=== PATIENT | male | born 1950 | race Hispanic/Latino ===

== ENCOUNTER 2024-11-05 19:20 | Emergency (ER) | payer MEDICARE ==
[~2024-11-05] VITALS: Ht 170.2 cm; Wt 79.4 kg
[~2024-11-05 19:20] MED LIST: ASPI-1005 PO; ATOR20TA65 PO; CLOP75TA32 PO; DAPA10TA PO; INSU3INS3 SQ; ISOS30TA92 PO; LOSA100T59 PO; METO50TA18 PO; NITR0.4T50 SL; OMEP20CA12 PO; SEMA7TAB2 PO; TAMS-55 PO; TRAM50TA4 PO
--- NOTE | 2024-11-05 19:42 | EKG ---
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
--- NOTE | 2024-11-05 20:11 | ERN ---
General Chief Complaint: Chest Pain Stated Complaint: CHEST PRESSURE, POST STENTS Time Seen by MD: 19:21 History of Present Illness Initial Comments Patient is a 74-year-old male with a history of numerous cardiac stent placements, the most recent ones approximately two three weeks ago by Dr. Cornelio Lora here. He is experiencing chest pressure substernal off and on throughout today and is coming in to see if his stents are functioning well. He has no other symptoms: No shortness of breath no chest pain no difficulty breathing no pain anywhere else in his body no lower extremity swelling no GI symptoms no urinary symptoms. Timing/Duration: 4-6 hours Allergies: Coded Allergies: levofloxacin (Unverified Allergy, Severe, HIVES, 06/02/16) Home Meds Active Scripts Losartan Potassium (Losartan Potassium) 100 Mg Tablet, 1 TAB PO DAILY for 30 Days, #30 TAB 0 Refills Prov:PAULKASSIDY A PA 10/21/24 Metoprolol Tartrate (Metoprolol Tartrate) 50 Mg Tablet, 1 TAB PO BID for 30 Days, #60 TAB 0 Refills Prov:PAULKASSIDY OLSON PA 10/21/24 Reported Medications Aspirin (ASPIRIN 81MG CHEW TAB) 81 Mg Tab.chew, 81 MG PO DAILY, TAB.CHEW 10/21/24 Nitroglycerin (Nitroglycerin) 0.4 Mg Tab.subl, 0.4 MG SL TIDP 10/21/24 Semaglutide (Rybelsus) 7 Mg Tablet, 1 TAB PO DAILY 10/21/24 Omeprazole (Omeprazole) 20 Mg Capsule.dr, 1 CAP PO DAILY 10/21/24 Dapagliflozin Propanediol (Farxiga) 10 Mg Tablet, 1 TAB PO DAILY 10/21/24 Atorvastatin Calcium (Atorvastatin Calcium) 20 Mg Tablet, 1 TAB PO DAILY 10/21/24 Insulin Glargine,Hum.rec.anlog (Lantus Solostar) 100 Unit/Ml (3 Ml) Insuln.pen, 80 UNITS SQ HS 10/21/24 Isosorbide Mononitrate (Isosorbide Mononitrate ER) 30 Mg Tab.er.24h, 1 TAB PO DAILY 10/21/24 Tamsulosin HCl (Flomax) 0.4 Mg Cap.er.24h, 0.4 MG PO HS 10/21/24 Tramadol Hcl (Tramadol HCl) 50 Mg Tablet, 1 TAB PO BID 10/21/24 Clopidogrel Bisulfate (Clopidogrel) 75 Mg Tablet, 1 TAB PO DAILY 10/21/24 Past Medical History Past Medical History: CAD, High Cholesterol, Hypertension Medical History Other: Numerous Cardiac STENTS Past Surgical History: CABG, Other Surgical History Other: HERNIA REPAIR Constitutional: (-) chills, (-) diaphoresis, (-) fever, (-) malaise, (-) weakness, (-) other documentation EENTM: (-) eye pain, (-) blurred vision, (-) tearing, (-) double vision, (-) ear pain, (-) ear discharge, (-) nose pain, (-) nose congestion, (-) throat pain , (-) Throat swelling, (-) mouth pain, (-) tooth pain, (-) mouth swelling, (-) other documentation Respiratory: (-) cough, (-) orthopnea, (-) short of breath, (-) stridor, (-) wheezing, (-) other documentation Cardiovascular: (-) chest pain, (-) edema, (-) palpitations, (-) syncope, (-) dyspnea on exertion, (-) other documentation Gastrointestinal/Abdominal: (-) nausea, (-) vomiting, (-) diarrhea, (-) abdominal pain, (-) abdominal distention, (-) constipation, (-) rectal bleeding, (-) dark stool/melena, (-) other documentation Musculoskeletal: (-) Neck pain, (-) back pain, (-) Flank Pain, (-) joint pain, (-) joint swelling, (-) muscle pain, (-) muscle stiffness, (-) gout, (-) other documentation Skin: (-) laceration, (-) contusion, (-) abrasion, (-) abscess, (-) rash, (-) change in color, (-) change in hair, (-) change in nails, (-) diaphoresis, (-) dryness, (-) other documentation Psych: (-) depression, (-) suicidal ideation, (-) anxiety, (-) emotional problems, (-) auditory hallucinations, (-) visual hallucinations Physical Exam General Appearance: (+) no apparent distress Orientation: (+) alert, (+) oriented x 3 Head/Face Trauma: No Eye: bilateral eye normal inspection, bilateral eye PERRL, bilateral eye EOMI Ear, Nose, Throat: (+) hearing grossly normal, (+) normal ENT inspection, (+) moist mucous membraine Neck: (+) normal inspection, (+) supple, (+) full range of motion Respiratory: (+) chest non-tender, (+) lungs clear, (+) well ventilated Heart: (+) regular, (+) no gallop Vascular: (+) no edema, (+) normal peripheral pulse Gastrointestinal: (+) soft, (+) non-tender, (+) bowel sound present Results Laboratory and Microbiology Lab and Micro Result Laboratory Tests Test 11/05/24 20:06 White Blood Count 7.3 K/uL (4.8-10.8) Red Blood Count 4.03 MIL/uL (4.50-6.20) L Hemoglobin 13.9 g/dL (14.0-18.0) L Hematocrit 39.4 % (42-54) L Mean Corpuscular Volume 97.8 fL (79-99) Mean Corpuscular Hemoglobin 34.5 pg (27.0-33.0) H Mean Corpuscular Hemoglobin Concent 35.3 g/dL (32.0-36.0) Red Cell Distribution Width 12.0 % (11.0-15.5) Platelet Count 146 K/uL (130-400) Mean Platelet Volume 11.4 fL (7.5-10.5) H Immature Granulocyte % (Auto) 0.3 % (0-1) Neutrophils (%) (Auto) 63.0 % (40.0-77.0) Lymphocytes (%) (Auto) 25.5 % (21.0-51.0) Monocytes (%) (Auto) 9.6 % (3.0-13.0) Eosinophils (%) (Auto) 1.1 % (0.0-8.0) Basophils (%) (Auto) 0.5 % (0.0-5.0) Neutrophils # (Auto) 4.6 K/uL (1.8-7.7) Lymphocytes # (Auto) 1.9 K/uL (1.0-4.8) Monocytes # (Auto) 0.7 K/uL (0.1-1.0) Eosinophils # (Auto) 0.08 K/uL (0.00-0.70) Basophils # (Auto) 0.04 K/uL (0.00-0.20) Absolute Immature Granulocyte (auto 0.02 K/uL (0-1) Nucleated Red Blood Cells 0.0 % (0.0-0.19) Sodium Level 137 mmol/L (136-145) Potassium Level 4.3 mmol/L (3.5-5.1) Chloride Level 103 mmol/L (101-111) Carbon Dioxide Level 25 mmol/L (21-32) Blood Urea Nitrogen 29 mg/dL (7-18) H Creatinine 1.7 mg/dL (0.5-1.3) H Glomerular Filtration Rate Calc 42 mL/min (>90) Random Glucose 249 mg/dL (70-105) H Total Calcium 8.5 mg/dL (8.5-10.1) Troponin I High Sensitivity 7 ng/L (4-75) B-Type Natriuretic Peptide 29 pg/mL (0-100) MDM Patient with substernal chest pressure three weeks after having stents placed. I will check cardiac enzymes EKGs BNP chest x-ray CBC chemistry panel. Patient's chest x-ray has a unchanged compared to one from 10/20/2024. His chemistry panel shows only a slight increase in his serum creatinine. His cardiac enzymes and BNP are both normal. I talked to the patient in his about repeating the enzymes and giving him some fluid and they said that they would rather go home and see their doctor in the morning as they already have a scheduled appointment with him Dr. Cornelio Lora. ED Course Orders Procedure Category Date Status Time 12 Lead Ekg Tracing- EKG 11/05/24 Complete Technical 19:24 Basic Metabolic Panel LAB 11/05/24 Complete 19:24 Cbc With Differential LAB 11/05/24 Complete 19:24 Troponin I High LAB 11/05/24 Complete Sensitivity 19:24 Chest 1vw RAD 11/05/24 Resulted 19:24 B-Type Natriuretic LAB 11/05/24 Complete Peptide 19:24 Lactated Ringers PHA 11/05/24 Complete 1000ml (Lactated 21:51 B-Type Natriuretic LAB 11/05/24 Logged Peptide 21:51 Troponin I High LAB 11/05/24 Logged Sensitivity 21:51 Current Medications Medications (Trade) Dose Ordered Sig/[place] Route PRN Reason Start Time Stop Time Status Last Admin Dose Admin Lactated Ringer's (Lactated Ringers 1000ml) 1,000 ml BOLUS STAT IV 11/05/24 21:51 11/05/24 21:54 DC Vital Signs Date Time Temp Pulse Resp B/P (MAP) Pulse Ox O2 Delivery O2 Flow Rate FiO2 11/05/24 19:57 98.6 66 19 189/82 98 Room Air* 0 21 11/05/24 19:36 98.6 66 18 194/84 99 Room Air 0 DX & DISP Disposition: Discharge Departure Impression: Primary Impression: Chest pressure Condition: Stable Additional Instructions: You were cardiac enzymes are normal there was no evidence of any cardiac ischemia or cardiac dysfunction. Your chest x-ray also looks fairly similar to the one from about a month ago. 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 Please return to the emergency room if you experience worsening chest pressure chest pain difficulty breathing. Referrals: GUNNER VELASQUEZ MD, PA (PCP) LEVAR ZULETA MD November 05, 2024 20:10
[2024-11-05 20:14] LABS: BASOPHILS # (AUTO) 0.04 K/uL (0.00-0.20); BASOPHILS % (AUTO) 0.5 % (0.0-5.0); EOSINOPHILS # (AUTO) 0.08 K/uL (0.00-0.70); EOSINOPHILS % (AUTO) 1.1 % (0.0-8.0); HEMATOCRIT 39.4 % (42-54); IMMATURE GRANULOCYTE ABSOLUTE 0.02 K/uL (0-1); LYMPHOCYTES # (AUTO) 1.9 K/uL (1.0-4.8); LYMPHOCYTES % (AUTO) 25.5 % (21.0-51.0); MEAN CORPUSCULAR HEMOGLOBIN 34.5 pg (27.0-33.0); MEAN CORPUSCULAR HGB CONC 35.3 g/dL (32.0-36.0); MEAN CORPUSCULAR VOLUME 97.8 fL (79-99); MONOCYTES # (AUTO) 0.7 K/uL (0.1-1.0); MONOCYTES % (AUTO) 9.6 % (3.0-13.0); NEUTROPHILS # (AUTO) 4.6 K/uL (1.8-7.7); PLATELET COUNT (AUTO) 146 K/uL (130-400); RED BLOOD CELL COUNT(AUTO) 4.03 MIL/uL (4.50-6.20); WHITE BLOOD COUNT (AUTO) 7.3 K/uL (4.8-10.8)
[2024-11-05 20:22] LABS: CREATININE 1.7 mg/dL (0.5-1.3); POTASSIUM 4.3 mmol/L (3.5-5.1)
[2024-11-05 20:49] LABS: B-TYPE NATRIURETIC PEPTIDE 29 pg/mL (0-100)
--- NOTE | 2024-11-05 20:50 | HMCIMG ---
CHEST 1VW CLINICAL HISTORY: CHEST PAIN POST STENT COMPARISON: 10/20/2024 TECHNIQUE: Single view of the chest was obtained. FINDINGS: Lungs are clear. Cardiac size unremarkable. The pacemaker is stable. Again demonstrated is change from prior median sternotomy. IMPRESSION: No acute cardiopulmonary process identified.
[2024-11-05 21:45] VITALS: BP 156/68; PULSE 62; RESP 18; TEMP 98.5; O2SAT 97
--- NOTE | 2024-11-05 22:10 | NUR ---
PATIENT EDUCATION DEALT TO PATIENT PRIOR TO D/C; PATIENT REINFORCED TO CALL 911 OR RETURN TO NEAREST ED FOR RETURN OR WORSENING OF SIGNS AND SYMPTOMS. ED MD AT BEDSIDE; ALL INSTRUCTIONS WERE REINFORCED BY ED MD AND ED RN. PATIENT AXO X4. PATIENT AND BOTH STATED UNDERSTANDING.
[2024-11-05] MEDS: LACTATED RINGERS 1000ML IV STA (22:29)
== END 2024-11-05 22:10 | disposition home or self-care (01) ==
LOC: EDH 19:20
DX: R07.89 Other chest pain (principal); I25.10 Atherosclerotic heart disease of native coronary artery without angina pectoris; E78.00 Pure hypercholesterolemia, unspecified; I10 Essential (primary) hypertension; Z79.02 Long term (current) use of antithrombotics/antiplatelets; Z79.82 Long term (current) use of aspirin; Z79.84 Long term (current) use of oral hypoglycemic drugs; Z79.899 Other long term (current) drug therapy; Z88.1 Allergy status to other antibiotic agents; Z95.1 Presence of aortocoronary bypass graft; Z95.5 Presence of coronary angioplasty implant and graft; Z98.890 Other specified postprocedural states
CPT/HCPCS: 36415; 71045; 80048; 83880; 84484; 85025; 93005; 99285

== ENCOUNTER 2024-11-07 10:57 | Inpatient (IN) | payer MEDICARE ==
[~2024-11-07] VITALS: Ht 170.2 cm; Wt 77.1 kg
[2024-11-07] VITALS (15 sets, daily range): BP systolic 100–194; BP diastolic 50–85; PULSE 59–81; RESP 16–17; O2SAT 98
[2024-11-07 11:17] LABS: BASOPHILS # (AUTO) 0.04 K/uL (0.00-0.20); BASOPHILS % (AUTO) 0.6 % (0.0-5.0); EOSINOPHILS # (AUTO) 0.05 K/uL (0.00-0.70); EOSINOPHILS % (AUTO) 0.8 % (0.0-8.0); HEMATOCRIT 41.5 % (42-54); IMMATURE GRANULOCYTE ABSOLUTE 0.02 K/uL (0-1); LYMPHOCYTES # (AUTO) 1.3 K/uL (1.0-4.8); LYMPHOCYTES % (AUTO) 21.2 % (21.0-51.0); MEAN CORPUSCULAR HEMOGLOBIN 34.8 pg (27.0-33.0); MEAN CORPUSCULAR HGB CONC 35.4 g/dL (32.0-36.0); MEAN CORPUSCULAR VOLUME 98.1 fL (79-99); MONOCYTES # (AUTO) 0.6 K/uL (0.1-1.0); MONOCYTES % (AUTO) 9.1 % (3.0-13.0); NEUTROPHILS # (AUTO) 4.2 K/uL (1.8-7.7); PLATELET COUNT (AUTO) 144 K/uL (130-400); RED BLOOD CELL COUNT(AUTO) 4.23 MIL/uL (4.50-6.20); RED CELL DISTRIBUTION WIDTH 12.1 % (11.0-15.5); WHITE BLOOD COUNT (AUTO) 6.2 K/uL (4.8-10.8)
--- NOTE | 2024-11-07 11:20 | ERN ---
General Chief Complaint: Chest Pain Stated Complaint: CHEST PAIN Time Seen by MD: 11:00 History of Present Illness Initial Comments 54-year-old male history of CAD, history of known right coronary artery lesion, patient of Dr. Cornelio Lora at the [facility], presents for chest pain. Patient was had CAD, he was expected to get a cardiac catheterization. He has been having on and off chest pressures recently. He was sent over from Dr. Cornelio Lora's office for a likely catheterization today. Patient currently has stable vital signs in his asymptomatic. Allergies: Coded Allergies: levofloxacin (Unverified Allergy, Severe, HIVES, 06/02/16) Home Meds Active Scripts Losartan Potassium (Losartan Potassium) 100 Mg Tablet, 1 TAB PO DAILY for 30 Days, #30 TAB 0 Refills Prov:KASSIDY PAUL 10/21/24 Metoprolol Tartrate (Metoprolol Tartrate) 50 Mg Tablet, 1 TAB PO BID for 30 Days, #60 TAB 0 Refills Prov:KASSIDY PAUL 10/21/24 Reported Medications Aspirin (ASPIRIN 81MG CHEW TAB) 81 Mg Tab.chew, 81 MG PO DAILY, TAB.CHEW 10/21/24 Nitroglycerin (Nitroglycerin) 0.4 Mg Tab.subl, 0.4 MG SL TIDP 10/21/24 Semaglutide (Rybelsus) 7 Mg Tablet, 1 TAB PO DAILY 10/21/24 Omeprazole (Omeprazole) 20 Mg Capsule.dr, 1 CAP PO DAILY 10/21/24 Dapagliflozin Propanediol (Farxiga) 10 Mg Tablet, 1 TAB PO DAILY 10/21/24 Atorvastatin Calcium (Atorvastatin Calcium) 20 Mg Tablet, 1 TAB PO DAILY 10/21/24 Insulin Glargine,Hum.rec.anlog (Lantus Solostar) 100 Unit/Ml (3 Ml) Insuln.pen, 80 UNITS SQ HS 10/21/24 Isosorbide Mononitrate (Isosorbide Mononitrate ER) 30 Mg Tab.er.24h, 1 TAB PO DAILY 10/21/24 Tamsulosin HCl (Flomax) 0.4 Mg Cap.er.24h, 0.4 MG PO HS 10/21/24 Tramadol Hcl (Tramadol HCl) 50 Mg Tablet, 1 TAB PO BID 10/21/24 Clopidogrel Bisulfate (Clopidogrel) 75 Mg Tablet, 1 TAB PO DAILY 10/21/24 Past Medical History Past Medical History: CAD, High Cholesterol, Hypertension Medical History Other: Numerous Cardiac STENTS Past Surgical History: CABG, Other Surgical History Other: HERNIA REPAIR ROS Dictation CONSTITUTIONAL: No chills, no fever, no weakness, no diaphoresis, no malaise. HEAD/FACE: No signs of trauma. EENT: No eye pain, no blurred vision, no tearing, no double vision, no ear pain, no ear discharge, no nose pain, no nasal congestion, no throat pain, no throat swelling, no mouth pain. RESPIRATORY: No cough, no orthopnea, no SOB, no stridor, no wheezing. CARDIOVASCULAR: Recent chest pains GASTROINTESTINAL/ABDOMINAL: No abdominal pain, no constipation, no diarrhea, no nausea, no vomiting. GENITOURINARY: No abnormal discharge, no dysuria, no frequent urination, no hematuria. No complaints of pain in the genitals. MUSCULOSKELETAL: No back pain, no gout, no joint pain, no joint swelling, no muscle pain, no muscle stiffness, no neck pain. INTEGUMENTARY: No change in color, no change in hair/nails, no dryness, no lesion, no lumps, no rash. NEUROLOGICAL/PSYCH: No anxiety, not depressed, no emotional problem, no headache, no numbness, no pre-existing deficit, no history of seizures, no tremors, no weakness. HEMATOLOGIC/LYMPHATIC: Not anemic, no history of blood clots, no apparent bleeding, no bruising, glands not swollen. All Systems Negative, Except as Noted. Physical Exam Physical Exam Dictation VITAL SIGNS: Reviewed. GENERAL APPEARANCE: Alert, oriented x3, no acute distress. HEAD AND FACE: Non-traumatic. EYES: PERRL, pink conjunctivas, eyelid no trauma, anterior chamber clear. EARS: Pinnas intact and no signs of trauma or erythema. Ear canals clear and no discharge. TMs no erythema. NOSE: No discharge, no bleeding. OROPHARYNX: Mouth normal, teeth no caries, tongue pink. Pharynx clear, no erythema. Tonsils no exudates, no abscesses noted. Mucous membrane moist. NECK: Supple, non-tender, no thyromegaly, no masses, no JVD, no bruits. BREAST: Deferred. CHEST: No tenderness, no crepitus, no paradoxical movement, no retractions. LUNGS: Clear, well-ventilated, symmetric, no rales, no wheezing, no rhonchi, no stridor, good breath sounds bilaterally. HEART: Regular rate, regular rhythm, no murmur, no gallops. VASCULAR: No peripheral edema. ABDOMEN: Soft, positive bowel sounds, nondistended, no guarding, nontender, no rebound, no masses no hepatomegaly, no splenomegaly, no Carbajal's sign, no hernias. RECTAL: Deferred. GENITAL: Deferred. NEUROLOGICAL: Normal speech, gross motor function intact, gross sensory function intact. MUSCULOSKELETAL: Neck nontender, full range of motion, back nontender, full range of motion. EXTREMITIES: Nontender, full range of motion. SKIN: Color pink, dry, no turgor, no rash, no lacerations, no abrasions, no contusions. LYMPHATICS: Deferred. Results Laboratory and Microbiology Lab and Micro Result Laboratory Tests Test 11/07/24 11:07 White Blood Count 6.2 K/uL (4.8-10.8) Red Blood Count 4.23 MIL/uL (4.50-6.20) L Hemoglobin 14.7 g/dL (14.0-18.0) Hematocrit 41.5 % (42-54) L Mean Corpuscular Volume 98.1 fL (79-99) Mean Corpuscular Hemoglobin 34.8 pg (27.0-33.0) H Mean Corpuscular Hemoglobin Concent 35.4 g/dL (32.0-36.0) Red Cell Distribution Width 12.1 % (11.0-15.5) Platelet Count 144 K/uL (130-400) Mean Platelet Volume 10.7 fL (7.5-10.5) H Immature Granulocyte % (Auto) 0.3 % (0-1) Neutrophils (%) (Auto) 68.0 % (40.0-77.0) Lymphocytes (%) (Auto) 21.2 % (21.0-51.0) Monocytes (%) (Auto) 9.1 % (3.0-13.0) Eosinophils (%) (Auto) 0.8 % (0.0-8.0) Basophils (%) (Auto) 0.6 % (0.0-5.0) Neutrophils # (Auto) 4.2 K/uL (1.8-7.7) Lymphocytes # (Auto) 1.3 K/uL (1.0-4.8) Monocytes # (Auto) 0.6 K/uL (0.1-1.0) Eosinophils # (Auto) 0.05 K/uL (0.00-0.70) Basophils # (Auto) 0.04 K/uL (0.00-0.20) Absolute Immature Granulocyte (auto 0.02 K/uL (0-1) Nucleated Red Blood Cells 0.0 % (0.0-0.19) Prothrombin Time 10.9 SEC (9.6-11.6) Prothromb Time International Ratio 1.03 (0.85-1.15) Activated Partial Thromboplast Time 26.1 SEC (26.3-35.5) L Sodium Level 142 mmol/L (136-145) Potassium Level 4.4 mmol/L (3.5-5.1) Chloride Level 106 mmol/L (101-111) Carbon Dioxide Level 27 mmol/L (21-32) Blood Urea Nitrogen 27 mg/dL (7-18) H Creatinine 1.2 mg/dL (0.5-1.3) Glomerular Filtration Rate Calc 64 mL/min (>90) Random Glucose 172 mg/dL (70-105) H Total Calcium 8.7 mg/dL (8.5-10.1) Magnesium Level 2.20 mg/dL (1.80-2.40) Troponin I High Sensitivity 10 ng/L (4-75) B-Type Natriuretic Peptide 86 pg/mL (0-100) MDM CC: On and off reason chest pains, Known complicated RCA lesion patient of Cornelio Lora Historian: Patient Comorbidities: CAD, dyslipidemia, hypertension, history of CABG Limitations by social determinants some health: None Differential diagnosis: ACS, angina, other Vital signs: Stable, remained stable here in the ER. Mild hypertension. EKG: Sinus rhythm rate of 65 normal axis good R-wave progression intervals are stable. No STEMI. Independently interpreted by me. Labs (independently ordered and interpreted by me ): No leukocytosis no anemia. Coags are stable. Metabolic panel stable. Troponin and BNP normal. CXR ( independently interpreted by me): No cardiomegaly pleural effusions or focal infiltrates. Pacemaker appears in place, sternotomy scar present Patient has a high-risk chest pain, heart score of five, we will admit for evaluation. ED Course Orders Procedure Category Date Status Time Cbc With Differential LAB 11/07/24 Complete 11:00 Prothrombin Time With LAB 11/07/24 Complete INR 11:00 B-Type Natriuretic LAB 11/07/24 Complete Peptide 11:00 Chest 1vw RAD 11/07/24 Taken 11:00 12 Lead Ekg Tracing- EKG 11/07/24 Logged Technical 11:00 Magnesium LAB 11/07/24 Complete 11:00 Troponin I High LAB 11/07/24 Complete Sensitivity 11:00 Partial LAB 11/07/24 Complete Thromboplastin Time 11:00 Basic Metabolic Panel LAB 11/07/24 Complete 11:00 Nothing By Mouth DIET 11/07/24 Transmitted Lunch Aspirin 81mg Ec Tab PHA 11/08/24 In Process (Aspirin 81mg Ec Tab 09:00 Atorvastatin 40mg PHA 11/07/24 In Process (Lipitor 40mg) 21:00 Apply Scds CPOE 11/07/24 Transmitted 11:39 Cbc With Differential LAB 11/08/24 Verified 04:00 Comprehensive LAB 11/08/24 Verified Metabolic Panel 04:00 Magnesium LAB 11/08/24 Verified 04:00 Magnesium 2gm Premix PHA 11/07/24 In Process 50ml (Magnesium 2gm 12:00 Initiate Npo DON 11/07/24 In Process Hypokalemia Jerod 11:39 Potassium Chloride PHA 11/07/24 In Process 20meq/100ml ([place] 12:00 Notify Physician If CPOE 11/07/24 Transmitted There Is 11:39 Notify Md On The Next CPOE 11/07/24 Transmitted 11:39 Notify Md On The CPOE 11/07/24 Transmitted Next(Cont.) 11:39 Acetaminophen 325 Tab PHA 11/07/24 In Process (Tylenol 325mg Tab 12:00 Ondansetron 4mg Inj PHA 11/07/24 In Process (Zofran 4mg Inj) 12:00 Famotidine 20mg Vial PHA 11/07/24 In Process (Pepcid 20mg Vial) 21:00 Nitroglycerin 0.4mg PHA 11/07/24 In Process Sl Tab (Nitrostat) 12:00 Metoprolol Tartrate PHA 11/07/24 In Process 50 Mg Tab (Lopressor 21:00 Isosorbide Titus 30mg PHA 11/08/24 In Process Sr Tab (Imdur 30mg 09:00 Losartan 100 Mg PHA 11/08/24 In Process Tablet (Cozaar 100mg 09:00 Initiate DON 11/07/24 In Process Hyperglycemia Protoco 11:43 Insulin Regular, PHA 11/07/24 In Process Human 3ml (Humulin R 16:30 Current Medications Medications (Trade) Dose Ordered Sig/[place] Route PRN Reason Start Time Stop Time Status Last Admin Dose Admin Acetaminophen (TYLenol 325MG TAB) 650 mg Q4H PRN PO TEMPERATURE GREATER THAN 101.5 11/07/24 12:00 12/07/24 11:59 Aspirin (Aspirin 81mg Ec Tab) 81 mg DAILY PO 11/08/24 09:00 12/08/24 08:59 Atorvastatin Calcium (LIPItor 40MG) 40 mg HS PO 11/07/24 21:00 12/07/24 20:59 Famotidine (Pepcid 20mg Vial) 20 mg BID IV 11/07/24 21:00 12/07/24 20:59 Insulin Human Regular (humuLIN R 100 UNIT/ML 3ML) INSULIN SLIDING SCAL... ACHS SQ 11/07/24 16:30 12/07/24 16:29 Isosorbide Mononitrate (Imdur 30mg Sr) 30 mg DAILY PO 11/08/24 09:00 12/08/24 08:59 Losartan Potassium (CozAAR 100MG TAB) 100 mg DAILY PO 11/08/24 09:00 12/08/24 08:59 Magnesium Sulfate 50 ml @ 0 mls/hr PROTOCOL PRN IV low mag level 11/07/24 12:00 12/07/24 11:59 Metoprolol Tartrate (loprESSOR) 50 mg BID PO 11/07/24 21:00 12/07/24 20:59 Nitroglycerin (Nitrostat) 0.4 mg AD PRN SL CHEST PAIN 11/07/24 12:00 12/07/24 11:59 Ondansetron HCl (zoFRAN 4MG INJ) 4 mg Q6H PRN IVP NAUSEA/VOMITING 11/07/24 12:00 12/07/24 11:59 Potassium Chloride 100 ml @ 50 mls/hr AD PRN IV POTASSIUM PROTOCOL 11/07/24 12:00 12/07/24 11:59 Vital Signs Date Time Temp Pulse Resp B/P (MAP) Pulse Ox O2 Delivery O2 Flow Rate FiO2 11/07/24 11:08 61 16 148/69 99 Room Air* 0 21 11/07/24 10:58 99.0 65 20 151/83 98 Room Air 0 DX & DISP Disposition: Inpatient Departure Impression: Primary Impression: Unstable angina Condition: Stable Referrals: SELF,REFERRAL (PCP) ELIZABETH ANDREWS DO November 07, 2024 11:20
[2024-11-07 11:24] LABS: CREATININE 1.2 mg/dL (0.5-1.3); MAGNESIUM 2.2 mg/dL (1.80-2.40); POTASSIUM 4.4 mmol/L (3.5-5.1)
[2024-11-07 11:35] LABS: B-TYPE NATRIURETIC PEPTIDE 86 pg/mL (0-100)
--- NOTE | 2024-11-07 11:43 | NUR ---
MED REC: DOES NOT HAVE MEDICATIONS ON HAND NOR LIST. DOES NOT HAVE METHOD TO RETREIVE THEM. CERTIFIED DRIVER EXAMINER, JOHN TO CONTACT [facility] FOR MEDICATIONS LIST.
--- NOTE | 2024-11-07 11:47 | HP ---
[facility] HISTORY AND PHYSICAL Date of Service: November 07, 2024 Time of Service: 11:33 HISTORY OF PRESENT ILLNESS: [ ] This is a 74-year-old male with a significant history of CAD s/p stents x3 on last admission underwent Left Heart cath needing intervention of the RCA and PDA ; remote CABG we will presents in ED for evaluation of unstable angina. He was sent from Dr. Lora's office for evaluation for possible left heart catheterization this afternoon. onset; Onset: 2 days, location: mid sternal, does not radiate, aggravated factors: unable to take a deep breath, alleviating factors: none. associated symptoms; Difficultly taking a deep breath, interval of palpitation, denies GI symptoms, dizziness, near fainting, swelling to lower extremities. Patient reports took his morning medication Woltev14 mg p.o. daily, rnxuzmzwfc90 mg p.o. twice a day, isosorbide 30 mg p.o. daily, baby as pirin81 mg p.o. daily. Patient is seen in ED 20 lying in bed in no distress. No dull chest pain. Patient is hemodynamically stable. Significant other at bedside discussed the plan of care. REVIEW OF SYSTEMS a 14 point ROS obtained all relevant were documented otherwise ROS negative PAST MEDICAL HISTORY: [ ] CAD , hyperlipidemia, hypertension PAST SURGICAL HISTORY: [ ]status post x3 stent drug-eluting stent in the mid RCA with residual 80% mid circumflex stenosis PAST SOCIAL HISTORY: never smoker, denies Alcohol Consumption FAMILY HISTORY: [ ] Noncontributory Coded Allergies: levofloxacin (Unverified Allergy, Severe, HIVES, 06/02/16) PHYSICAL EXAM GENERAL APPEARANCE: The patient is awake, alert, and oriented, in no acute cardiopulmonary distress. NEUROLOGICAL: Cranial nerves II-XII grossly intact. Motor is 5/5 in bilateral upper and lower extremities proximal to distal. No sensory deficits. HEENT: Face is symmetric. Pupils are equal and reactive. Extraocular movements are intact. NECK: Supple. No JVD. No thyromegaly. No submental, submandibular, pre- /postauricular, occipital or supraclavicular lymphadenopathy. CHEST: Normal chest expansion. No Telemetry. LUNGS: Absence of any rales, rhonchi or any wheezing. CARDIOVASCULAR: Regular. S1 and S2 normal. No appreciable rubs, murmurs or gallops. ABDOMEN: Soft, nontender, and nondistended. There is no rebound, voluntary guarding, or rigidity. : Deferred. No Boyle. EXTREMITIES: Non-edematous and not cyanotic. No clubbing. Good capillary refill. SKIN: No skin breakdown. Vital Sign (Last 24 Hours) 11/07/24 11/07/24 10:58 11:08 Temp 99.0 Pulse 61 Resp 16 B/P (MAP) 148/69 Pulse Ox 99 O2 Delivery Room Air* O2 Flow Rate 0 FiO2 21 LABS: Laboratory: Test 11/07/24 11:07 Range/Units White Blood Count 6.2 4.8-10.8 K/uL Red Blood Count 4.23 L 4.50-6.20 MIL/uL Hemoglobin 14.7 14.0-18.0 g/dL Hematocrit 41.5 L 42-54 % Mean Corpuscular Volume 98.1 79-99 fL Mean Corpuscular Hemoglobin 34.8 H 27.0-33.0 pg Mean Corpuscular Hemoglobin Concent 35.4 32.0-36.0 g/dL Red Cell Distribution Width 12.1 11.0-15.5 % Platelet Count 144 130-400 K/uL Mean Platelet Volume 10.7 H 7.5-10.5 fL Immature Granulocyte % (Auto) 0.3 0-1 % Neutrophils (%) (Auto) 68.0 40.0-77.0 % Lymphocytes (%) (Auto) 21.2 21.0-51.0 % Monocytes (%) (Auto) 9.1 3.0-13.0 % Eosinophils (%) (Auto) 0.8 0.0-8.0 % Basophils (%) (Auto) 0.6 0.0-5.0 % Neutrophils # (Auto) 4.2 1.8-7.7 K/uL Lymphocytes # (Auto) 1.3 1.0-4.8 K/uL Monocytes # (Auto) 0.6 0.1-1.0 K/uL Eosinophils # (Auto) 0.05 0.00-0.70 K/uL Basophils # (Auto) 0.04 0.00-0.20 K/uL Absolute Immature Granulocyte (auto 0.02 0-1 K/uL Nucleated Red Blood Cells 0.0 0.0-0.19 % Sodium Level 142 136-145 mmol/L Potassium Level 4.4 3.5-5.1 mmol/L Chloride Level 106 101-111 mmol/L Carbon Dioxide Level 27 21-32 mmol/L Blood Urea Nitrogen 27 H 7-18 mg/dL Creatinine 1.2 0.5-1.3 mg/dL Glomerular Filtration Rate Calc 64 >90 mL/min Random Glucose 172 H 70-105 mg/dL Total Calcium 8.7 8.5-10.1 mg/dL Magnesium Level 2.20 1.80-2.40 mg/dL Troponin I High Sensitivity 10 4-75 ng/L DIAGNOSTICS / RADIOLOGY: [ ] ASSESSMENT: Unstable angina rule out ACS POA CAD s/p CABG, s/p stenting x3 hockwave and PCI to SVG to OM 2 10/20. However, patient will need intervention of the RCA and PDA in the future POA HTN HLD PLAN: Admit:PCCU condition:guarded Status:Full code IVF: NS at 75 ml/hr Consultants: supervisor prop making Procedure: Left Heart Cath this afternoon ACS protocol; Asa, Statin Therapy. Labs cbc, cmp, mag+ lipid panel, TSH. A1c Replace electrolytes as needed as per protocol to keep potassium above 4.0 magnesium 2.0. Home medications isosorbide 30 mg p.o. daily, y, metoprolol 25 mg twice a day, asa 81 mg po daily, PLavix 75 mg po daily Nitroglycerin 0.4 sublingually as directed PRN: MEDICATIONS Tylenol 650 mg po every 4 hrs for fever Zofran 4 mg IV every 6 hrs for n/v Hydralazine 5 mg IV every 4 hrs systolic pressure > 160 bowel regiment: lactulose 20 gm PO BID PRN constipation Pain management: Tylenol as directed Supportive measures: DVT ppx, GI ppx all questions answered time spent: > 35 min Supervising MD: c/d This document was generated in part using voice recognition software, occasional wrong word or sound alike substitutions may have occurred due to the inherent limitations of voice recognition software. Read the chart carefully and recognize using context, where the substitutions have occurred. Although every effort was made to edit the content, ac/dc rewinder and typing errors may occur ADVANCED CARE PLANNING 1. Which of the following were discussed? Hospice Care - Yes / No Therapeutic options - Yes / No Advance Directives - Yes / No Other discussions - 2. Discussed with who? 3. Voluntary nature of this service was explained to the patient? Yes / No 4. Amount of time spent - 5. Reviewed by Physician? (if this service was performed by NPP) Yes / No ATTESTATION BY PHYSICIAN I have seen and examined the patient. I reviewed the documentation, medical decision making, and treatment plan as noted by the mid-level provider above. I agree with the findings and plan of care. JOSE BOWIE MD, ELIZABETH NP November 07, 2024 11:47
[2024-11-07 11:53] LABS: INR 1.03 (0.85-1.15); PROTHROMBIN TIME 10.9 SEC (9.6-11.6)
[2024-11-07 11:54] LABS: PARTIAL THROMBOPLASTIN TIME 26.1 SEC (26.3-35.5)
[2024-11-07] MEDS ORDERED: PoTASSium chloRIDE 20MEQ/100ML 100 ML IV PRN (12:00)
[2024-11-07] MEDS ORDERED: ondanSETRON 4MG INJ IVP PRN (12:00)
[2024-11-07] MEDS ORDERED: NITROGLYCERIN 0.4 MG SL TAB SL PRN ×2 (12:00→17:00)
[2024-11-07] MEDS ORDERED: acetaMINOPHEN 325 MG TAB PO PRN (12:00)
[2024-11-07] MEDS ORDERED: MAGNESIUM 2GM PREMIX 50ML 50 ML IV PRN (12:00)
--- NOTE | 2024-11-07 12:02 | EKG ---
[facility] Test Date: 2024-11-07 Test Time: 10:43:12 Pat Name: FRANNY FERRIS Department: ED Room: 201 Gender: M Senior Bi Developer: [id number] : 1950 Requested By: ELIZABETH ANDREWS Order Number: [id number] Reading MD: Tomasa Boland Measurements Intervals [place] Rate: 65 P: 50 OH: 146 QRS: 35 QRSD: 75 T: 91 QT: 379 QTc: 395 Interpretive Statements Sinus rhythm Nonspecific T abnormalities, lateral leads Compared to ECG 11/05/2024 19:39:05 T-wave abnormality now present Electronically Signed On 11-08-2024 09:19:02 CDT by Tomasa Boland Please click the below link to view image of tracing.
--- NOTE | 2024-11-07 12:20 | HMCIMG ---
Exam Type: CHEST 1VW Clinical Information: chest pain Comparison: None Findings: There is cardiomegaly and there is status post median sternotomy. The lungs are clear of infiltrates. Left-sided cardiac pacemaker is noted with leads in place. Impression: Clear lungs.
--- NOTE | 2024-11-07 13:39 | CONS ---
Cardiac Consult Note CONSULT NOTE DATE OF SERVICE: November 07, 2024 at 10:57 REFERRING PROVIDER: BRIEN GONZALES MD REASON FOR CONSULT: Unstable angina HPI: 74-year-old male who saw me in the office on October 31, 2024 for follow up after having had successful angioplasty and stent placement to a saphenous vein graft to obtuse marginal branch 2. With several stents placed in that setting as well as lithotripsy done. Patient had residual stenosis and a PDA of the proximal 95% as well as InStent restenosis of a mid RCA stent anywhere from 50-70%. Patient started having symptoms which were unstable nature and he was told to present to the nearest emergency room. Patient is here today for evaluation. Initial enzymes have been reviewed. Plan at this time is to proceed with intervention to right coronary artery and PDA. ROS: No fever, headache, chest pain, abdominal pain, nausea, vomiting, or diarrhea. PMHX: History of coronary artery disease with CABG x3 in 2007 Medicated RCA stent done on February 16, 2012 with a 3.5 mm x 12 mm medicated stent placed May 2019 with a stent placed to the saphenous vein graft to obtuse marginal branch with with the use of a 3.5 mm x 15 resolute ayla stent June 2019 proximal RCA3 mm x 23 mm Xience stent placed April 2019 Medtronic dual-chamber biventricular pacemaker MRI compatible Diabetes mellitus Hypertension October 20, 2024 lithotripsy angioplasty to a saphenous vein graft with the use of a4 mm x 12 mm lithotripsy balloon for a treatments as well as 3.5 mm x 22 mm ayla [place] stent post dilated to 4.69 mm vessel and use of a 4.5 mm x 33 mm Xience stent deployed to 4.67 mm PSHX: CABG x3 2007 Hernia repair Pacemaker placement 2018 FH: Noncontributory SOCIAL: Noncontributory PHYSICAL EXAMINATION: GENERAL: No acute distress. HEENT: Normocephalic, atraumatic. CARDIAC: Positive S1 and S2. No murmurs. LUNGS: Clear to auscultation bilaterally. ABDOMEN: Bowel sounds present, soft, nontender. EXTREMITIES: No edema bilaterally. NEUROLOGIC: Cranial nerves 2-12 grossly intact. PSYCHIATRIC: Calm. ASSESSMENT: Unstable angina History of severe coronary artery disease status post CABG and multivessel intervention done postoperatively Hypertension Diabetes Sick sinus syndrome with prior Medtronic dual-chamber biventricular pacemaker placement April 21, 2019 Preserved left ventricular function PLAN: At this time patient will proceed with coronary angiography with plans on intervention to right coronary artery. May consider lithotripsy angioplasty if there is indeed in stent restenosis likely we will need to do intravascular ultrasound of stent did region with further recommendations to follow. Hopefully we will be able to revascularize 95% stenosis of PDA. Risks and goals of procedure have been discussed with the patient he is willing to proceed. All questions have been answered and informed consent will be obtained Vital Signs 11/07/24 11/07/24 10:58 11:08 Temp 99.0 Pulse 65 61 Resp 20 16 B/P (MAP) 151/83 148/69 Pulse Ox 98 99 O2 Delivery Room Air Room Air* O2 Flow Rate 0 0 FiO2 21 Laboratory Tests Test 11/07/24 11:07 White Blood Count 6.2 K/uL (4.8-10.8) Red Blood Count 4.23 MIL/uL (4.50-6.20) Hemoglobin 14.7 g/dL (14.0-18.0) Hematocrit 41.5 % (42-54) Mean Corpuscular Volume 98.1 fL (79-99) Mean Corpuscular Hemoglobin 34.8 pg (27.0-33.0) Mean Corpuscular Hemoglobin Concent 35.4 g/dL (32.0-36.0) Red Cell Distribution Width 12.1 % (11.0-15.5) Platelet Count 144 K/uL (130-400) Mean Platelet Volume 10.7 fL (7.5-10.5) Immature Granulocyte % (Auto) 0.3 % (0-1) Neutrophils (%) (Auto) 68.0 % (40.0-77.0) Lymphocytes (%) (Auto) 21.2 % (21.0-51.0) Monocytes (%) (Auto) 9.1 % (3.0-13.0) Eosinophils (%) (Auto) 0.8 % (0.0-8.0) Basophils (%) (Auto) 0.6 % (0.0-5.0) Neutrophils # (Auto) 4.2 K/uL (1.8-7.7) Lymphocytes # (Auto) 1.3 K/uL (1.0-4.8) Monocytes # (Auto) 0.6 K/uL (0.1-1.0) Eosinophils # (Auto) 0.05 K/uL (0.00-0.70) Basophils # (Auto) 0.04 K/uL (0.00-0.20) Absolute Immature Granulocyte (auto 0.02 K/uL (0-1) Nucleated Red Blood Cells 0.0 % (0.0-0.19) Prothrombin Time 10.9 SEC (9.6-11.6) Prothromb Time International Ratio 1.03 (0.85-1.15) Activated Partial Thromboplast Time 26.1 SEC (26.3-35.5) Sodium Level 142 mmol/L (136-145) Potassium Level 4.4 mmol/L (3.5-5.1) Chloride Level 106 mmol/L (101-111) Carbon Dioxide Level 27 mmol/L (21-32) Blood Urea Nitrogen 27 mg/dL (7-18) Creatinine 1.2 mg/dL (0.5-1.3) Glomerular Filtration Rate Calc 64 mL/min (>90) Random Glucose 172 mg/dL (70-105) Total Calcium 8.7 mg/dL (8.5-10.1) Magnesium Level 2.20 mg/dL (1.80-2.40) Troponin I High Sensitivity 10 ng/L (4-75) B-Type Natriuretic Peptide 86 pg/mL (0-100) Current Medications Medications Dose Ordered Sig/[place] Route PRN Reason Start Time Stop Time Status Last Admin Aspirin 81 mg DAILY PO 11/08/24 09:00 12/08/24 08:59 Atorvastatin Calcium 40 mg HS PO 11/07/24 21:00 11/07/24 12:18 DC Famotidine 20 mg BID IV 11/07/24 21:00 12/07/24 20:59 Metoprolol Tartrate 50 mg BID PO 11/07/24 21:00 11/07/24 12:18 DC Isosorbide Mononitrate 30 mg DAILY PO 11/08/24 09:00 12/08/24 08:59 Losartan Potassium 100 mg DAILY PO 11/08/24 09:00 11/07/24 12:18 DC Insulin Human Regular INSULIN SLIDING SCAL... ACHS SQ 11/07/24 16:30 12/07/24 16:29 Atorvastatin Calcium 20 mg HS PO 11/07/24 21:00 12/07/24 20:59 Metoprolol Tartrate 25 mg BID PO 11/07/24 21:00 12/07/24 20:59 Insulin Glargine 80 units HS SQ 11/07/24 21:00 12/07/24 20:59 Active Scripts Losartan Potassium (Losartan Potassium) 100 Mg Tablet, 1 TAB PO DAILY for 30 Days, #30 TAB 0 Refills Prov:BEVERLYKASSIDY A PA 10/21/24 Metoprolol Tartrate (Metoprolol Tartrate) 50 Mg Tablet, 1 TAB PO BID for 30 Days, #60 TAB 0 Refills Prov:BEVERLYKASSIDY A PA 10/21/24 Reported Medications Aspirin (ASPIRIN 81MG CHEW TAB) 81 Mg Tab.chew, 81 MG PO DAILY, TAB.CHEW 10/21/24 Nitroglycerin (Nitroglycerin) 0.4 Mg Tab.subl, 0.4 MG SL TIDP 10/21/24 Semaglutide (Rybelsus) 7 Mg Tablet, 1 TAB PO DAILY 10/21/24 Omeprazole (Omeprazole) 20 Mg Capsule.dr, 1 CAP PO DAILY 10/21/24 Dapagliflozin Propanediol (Farxiga) 10 Mg Tablet, 1 TAB PO DAILY 10/21/24 Atorvastatin Calcium (Atorvastatin Calcium) 20 Mg Tablet, 1 TAB PO DAILY 10/21/24 Insulin Glargine,Hum.rec.anlog (Lantus Solostar) 100 Unit/Ml (3 Ml) Insuln.pen, 80 UNITS SQ HS 10/21/24 Isosorbide Mononitrate (Isosorbide Mononitrate ER) 30 Mg Tab.er.24h, 1 TAB PO DAILY 10/21/24 Tamsulosin HCl (Flomax) 0.4 Mg Cap.er.24h, 0.4 MG PO HS 10/21/24 Tramadol Hcl (Tramadol HCl) 50 Mg Tablet, 1 TAB PO BID 10/21/24 Clopidogrel Bisulfate (Clopidogrel) 75 Mg Tablet, 1 TAB PO DAILY 10/21/24 BRIEN GONZALES MD November 07, 2024 13:39
[2024-11-07] MEDS ORDERED: IOHEXOL 350 MG/ML 100ML INFUS..BTL IV ONE ×2 (13:57→15:57)
[2024-11-07] MEDS ORDERED: LIDOCAINE HCL 400MG/20ML VIAL ONE (13:57)
[2024-11-07] MEDS ORDERED: HEParin 10,000 UNIT/10ML (1,000 UNIT/ML) VIAL ONE (13:57)
[2024-11-07] MEDS ORDERED: HEParin-NS 1,000 UNIT/500 ML 1,000 ML IV ONE (13:58)
[2024-11-07] MEDS ORDERED: NITROGLYCERIN 50MG VIAL ONE (13:58)
--- NOTE | 2024-11-07 13:58 | NUR ---
TO SALES AND RETAIL MANAGEMENT RECRUITER AT THIS TIME. MRP CONTROLLER MADE AWARE.
[2024-11-07] MEDS ORDERED: 0.9% NACL 500ML IV.SOLN 500 ML IV SCH (14:00)
[2024-11-07] MEDS ORDERED: FENTanyl CITRate PF 50 MCG/1 ML 2ML VIAL ONE (14:12)
[2024-11-07] MEDS ORDERED: MIDAZOLAM HCL 1 MG/ML 2ML VIAL ONE ×2 (14:13→14:23)
[2024-11-07] MEDS ORDERED: BIVALIRUDIN 250 MG/VIAL IV ONE ×2 (14:25→15:24)
[2024-11-07] MEDS ORDERED: ATROPINE 1MG SYG IVP ONE (14:36)
[2024-11-07] MEDS ORDERED: HEParin-NS 1,000 UNIT/500 ML 500 ML IV ONE (15:08)
[2024-11-07] MEDS ORDERED: morPHINE 4 MG SYG ONE (15:48)
[2024-11-07] MEDS ORDERED: morPHINE 2 MG SYG ONE (16:02)
[2024-11-07] MEDS: INSULIN humuLIN R 100 UNIT/ML 3ML SQ SCH (16:30)
[2024-11-07] MEDS ORDERED: cloPIDOgrel 300MG TAB ONE (16:31)
--- NOTE | 2024-11-07 16:57 | PRN ---
PROCEDURES: 1. Right common femoral arterial sheath placement. 2. Selective RCA angiography 3. Angioplasty and stent placement to mid posterior descending artery with the use of a 2.5 mm by 22 mm resolute ayla stent deployed to 2.50 mm 4. Angioplasty and stent placement to mid RCA with placement of a 3.5 mm by 30 mm resolute ayla stent deployed to 3.70 mm 5. Angioplasty and stent placement to proximal RCA with the use of a 4 mm x 26 mm resolute ayla stent deployed to 4.20 mm 6. Medicated angioplasty with a drug coated balloon to mid RCA for InStent restenosis of greater than 80% with the use of a 3.5 mm x 15 mm agent balloon deployed to 3.64 mm INDICATION: Unstable angina Severe InStent restenosis of RCA mid distal stent and proximal stent Severe stenosis of right PDA mid at 95-99% DESCRIPTION OF PROCEDURE/INTERVENTIONAL REPORT: The patient was brought to the catheterization suite and prepped and draped in sterile fashion. IV was started, and not already in place and both groins were exposed for arterial access. 1% lidocaine was used for local anesthesia and then a micropuncture kit was used to gain access once free-flowing blood was seen, modified Seldinger technique was utilized to place a 6 [place] sheath into the right common femoral artery. Next a 6 [place] AR1 guide catheter with side holes was then placed into the right coronary artery and initially a choice PT extra-support wire was advanced into the distal PDA. I was unable to advance the balloon secondary to significant issues in the proximal and mid segment where there was there was InStent restenosis. Went in with a GuideLiner and again was then able to advance any equipment and actually lost access had to rewire vessel and went in with a run-through wire and ran into the same issues following was able to place a choice PT extra-support wire and a whisper wire into the ongoing PDA under fluoroscopic guidance. With the GuideLiner support I was able to advance the 2 5 10 balloon to the mid PDA and several inflations were done to pre dilate this lesion. I then went in with a 2.5 mm x 22 mm resolute ayla stent and deployed that to 2.50 mm. Next we tried to advance a medicated stent to the mid distal segment of the RCA for the InStent restenosis in the area of the RCA that was uncovered with stenting which was severely stenosed at 80%. The 3.5 x 30 mm balloon stent would not track so we then went in with a 3 mm x 20 mm balloon and pre-dilated the mid distal RCA and mid RCA to nominal pressure I was then able to deliver the 3.5 mm x 30 mm to the mid distal RCA in an overlapping fashion with the previously placed mid RCA stent and deployed this to greater than 3.70 mm. I then used a noncompliant balloon and pretreated the InStent restenosis in the distal portion of the previously placed stent. I then post dilated the recently placed RCA stent and then I went in with a 3.5 mm x 15 mm agent drug coated balloon into the distal InStent restenosis of remotely replaced stent and deployed it for 3.64 mm for 30 seconds. I then placed a 4 mm x 26 mm resolute ayla stent into the proximal RCA for InStent restenosis in an overlapping fashion with mid RCA stent and deployed that to 4.20 mm. At end of case there was no evidence of dissection or perforation with FRITZ 3 flow noted. Sheath was sewn into place to be removed at a later time. RECOMMENDATIONS: PATIENT WILL REMAIN ON DUAL ANTIPLATELET THERAPY SHEATH WILL BE REMOVED IN 3 HOURS 3 HOURS BEDREST IV HYDRATION PROBABLE DISCHARGE IN [place]. BRIEN GONZALES MD November 07, 2024 16:57
[2024-11-07] MEDS ORDERED: metoPROLOL tartRATE 1 MG/ML 5ML VIAL IV PRN (17:00)
[2024-11-07] MEDS ORDERED: cloNIDine HCL 0.2 MG TABLET PO PRN (17:30)
[2024-11-07] MEDS ORDERED: LAbetaLOL 20MG SYG IV PRN (17:30)
[2024-11-07] MEDS: hydrALAZine 20MG/ML VIAL IV PRN (17:58)
[2024-11-07] MEDS: 0.9%NACL 1000ML 1,000 ML IV SCH (18:03)
[2024-11-07] MEDS: NITROGLYCERIN 1GM OINT 1 INCH/1GM TD SCH (18:23)
[2024-11-07] MEDS: morPHINE 4 MG SYG IVP PRN (18:25)
[2024-11-07] MEDS ORDERED: atorVAStatin 40 MG TABLET PO SCH (21:00)
[2024-11-07] MEDS ORDERED: metoPROLOL tartRATE 50 MG TAB PO SCH (21:00)
[2024-11-07] MEDS: atorVAStatin 20 MG TABLET PO SCH (21:56)
[2024-11-07] MEDS: FAMOTIDINE 20MG VIAL IV SCH (21:56)
[2024-11-07] MEDS: metoPROLOL tartRATE 50 MG TAB PO SCH (21:56)
[2024-11-07] MEDS: INSULIN GLARgine 100 UNITS/ML 10 ML VIAL SQ SCH (23:18)
--- NOTE | 2024-11-07 23:18 | NUR ---
insulin held due to patient has not eaten.
[2024-11-08] VITALS: BP 134/72; PULSE 61; RESP 16; TEMP 97.8
[2024-11-08 01:00] VITALS: BP 144/72; PULSE 63; RESP 16
--- NOTE | 2024-11-08 02:28 | NUR ---
patient verbalized not being able to sleep and feels a bit restless. Asked if wanted this nurse to call fire protection inspector provider to ask if may get sleep aide or medication for anxiety. Patient stated "no".
[2024-11-08] MEDS: acetaMINOPHEN 325 MG TAB PO PRN (02:48)
--- NOTE | 2024-11-08 02:48 | NUR ---
patient requested prn tylenol for chest soreness and antigas medication. Patient stated is having trouble burping. spoke to heriberto buckley np. orders tylenol 650mg q4hrs prn, simethicone 120mg q6hrs prn.
[2024-11-08] MEDS ORDERED: SIMETHICONE 80 MG TAB.CHEW PO PRN (03:00)
[2024-11-08 03:01] VITALS: BP 145/76; PULSE 63; RESP 16; TEMP 97.4
[2024-11-08] MEDS: SIMETHICONE 80 MG TAB.CHEW PO PRN (03:01)
[2024-11-08 04:50] LABS: BASOPHILS # (AUTO) 0.04 K/uL (0.00-0.20); BASOPHILS % (AUTO) 0.5 % (0.0-5.0); EOSINOPHILS # (AUTO) 0.02 K/uL (0.00-0.70); EOSINOPHILS % (AUTO) 0.2 % (0.0-8.0); HEMATOCRIT 36.7 % (42-54); IMMATURE GRANULOCYTE ABSOLUTE 0.02 K/uL (0-1); LYMPHOCYTES # (AUTO) 1.4 K/uL (1.0-4.8); LYMPHOCYTES % (AUTO) 16.6 % (21.0-51.0); MEAN CORPUSCULAR HEMOGLOBIN 34.5 pg (27.0-33.0); MEAN CORPUSCULAR HGB CONC 35.4 g/dL (32.0-36.0); MEAN CORPUSCULAR VOLUME 97.3 fL (79-99); MONOCYTES # (AUTO) 0.8 K/uL (0.1-1.0); MONOCYTES % (AUTO) 9.8 % (3.0-13.0); NEUTROPHILS % (AUTO) 72.7 % (40.0-77.0); PLATELET COUNT (AUTO) 134 K/uL (130-400); RED BLOOD CELL COUNT(AUTO) 3.77 MIL/uL (4.50-6.20); RED CELL DISTRIBUTION WIDTH 12.3 % (11.0-15.5); WHITE BLOOD COUNT (AUTO) 8.2 K/uL (4.8-10.8)
[2024-11-08 05:12] LABS: ALBUMIN 3.3 g/dL (3.5-5.0); BILIRUBIN,TOTAL 0.9 mg/dL (0.2-1.0); CREATININE 1.2 mg/dL (0.5-1.3); POTASSIUM 4.1 mmol/L (3.5-5.1); TOTAL PROTEIN, SERUM 6.5 g/dL (6.0-8.3)
--- NOTE | 2024-11-08 06:04 | NUR ---
@2100pm 11/07/24 DISCONTINUED 6FR SHEATH TO RIGHT FEMORAL AREA PER DR. GONZALES ORDERS. NURSE DENISE RN ASSISTED THIS NURSE. SUTURES IN PLACE REMOVED TO RIGHT GROIN AREA. NO NEED FOR PTT, RIGHT GROIN SHEATH REMOVED WITHOUT ANY DIFFICULTY. CATHETER INTACT. PATIENT TOLERATED WELL. APPLIED IMMEDIATE MANUAL PRESSURE WITH USE OF DSTAT. MINIMAL BLEEDING. PRESSURE HELD IN PLACE FOR 20 MINUTES PER ORDERS. UPON COMPLETION OF 20MIN OF PRESSURE, NO S/S OF BLEEDING. NO HEMATOMA. RIGHT FEMORAL AREA SOFT. NO PAIN VOICED BY PATIENT. BILATERAL PULSES VIA DOPPLER.
[2024-11-08 07:00] VITALS: BP 105/69; PULSE 62; RESP 16; TEMP 98.2
[2024-11-08] MEDS: cloPIDOgrel 75MG TAB PO SCH (08:49)
[2024-11-08] MEDS: ISOSORBIDE MONO 30MG SR TAB PO SCH (08:49)
[2024-11-08] MEDS: ASPIRIN 81MG CHEW TAB PO SCH (08:49)
[2024-11-08] MEDS ORDERED: LoSARTan 100 MG TABLET PO SCH (09:00)
[2024-11-08] MEDS ORDERED: ASPIRIN 81 MG EC TAB PO SCH (09:00)
--- NOTE | 2024-11-08 09:28 | NUR ---
DCP- Home with OUTPT Cardiac Therapy Sw dc with pt and Jonna Etienne [phone]. Per pt, prior to admission he was active and able to complete ADLS independently. transports as needed. Pt has walker with seat, shower chair, bsc, nebulizer. No HH or HD services. Discussed DCP. Pt and are wanting to talk to Dr Lora regarding cardiac therapy [place], prefer outpt in [place], and dc home. CM made aware and will follow and assist as needed Addendum: 11/08/24 at 0937 by ALFRED ECHEVERRIA Amended: Links added.
[2024-11-08 10:29] VITALS: O2SAT 98
[2024-11-08 11:00] VITALS: BP 121/62; PULSE 62; RESP 20; TEMP 98
[2024-11-08] MEDS ORDERED: METO25TA6 PO (11:59)
--- NOTE | 2024-11-08 13:23 | DS ---
Discharge Summary Hospital Course Summary: This is a 74-year-old male with a significant history of CAD s/p stents x3 on last admission underwent Left Heart cath needing intervention of the RCA and PDA ; remote CABG present in ED for evaluation of unstable angina. He was sent from Dr. Lora's office for evaluation for possible left heart catheterization. associated symptoms; Difficultly taking a deep breath, interval of palpitation, denies GI symptoms, dizziness, near fainting, swelling to lower extremities. Patient reports took his morning medication [id number] mg p.o. daily, [id number] mg p.o. twice a day, isosorbide 30 mg p.o. daily, baby [id number] mg p.o. daily. Patient is seen in ED 20 lying in bed in no distress. No dull chest pain. Patient is hemodynamically stable. Significant other at bedside discussed the plan of care. Patient was admitted to the progressive care unit, placed on telemetry monitoring, evaluated by dry kiln operator. Left heart catheterization done on November 07, 2024, please refer to full report for details. Clay Pigeon Loader(s): Cardiology Procedure(s): PROCEDURES: 1. Right common femoral arterial sheath placement. 2. Selective RCA angiography 3. Angioplasty and stent placement to mid posterior descending artery with the use of a 2.5 mm by 22 mm resolute ayla stent deployed to 2.50 mm 4. Angioplasty and stent placement to mid RCA with placement of a 3.5 mm by 30 mm resolute ayla stent deployed to 3.70 mm 5. Angioplasty and stent placement to proximal RCA with the use of a 4 mm x 26 mm resolute ayla stent deployed to 4.20 mm 6. Medicated angioplasty with a drug coated balloon to mid RCA for InStent restenosis of greater than 80% with the use of a 3.5 mm x 15 mm agent balloon deployed to 3.64 mm INDICATION: Unstable angina Severe InStent restenosis of RCA mid distal stent and proximal stent Severe stenosis of right PDA mid at 95-99% DESCRIPTION OF PROCEDURE/INTERVENTIONAL REPORT: The patient was brought to the catheterization suite and prepped and draped in sterile fashion. IV was started, and not already in place and both groins were exposed for arterial access. 1% lidocaine was used for local anesthesia and then a micropuncture kit was used to gain access once free-flowing blood was seen, modified Seldinger technique was utilized to place a 6 [place] sheath into the right common femoral artery. Next a 6 [place] AR1 guide catheter with side holes was then placed into the right coronary artery and initially a choice PT extra-support wire was advanced into the distal PDA. I was unable to advance the balloon secondary to significant issues in the proximal and mid segment where there was there was InStent restenosis. Went in with a GuideLiner and again was then able to advance any equipment and actually lost access had to rewire vessel and went in with a run-through wire and ran into the same issues following was able to place a choice PT extra-support wire and a whisper wire into the ongoing PDA under flu oroscopic guidance. With the GuideLiner support I was able to advance the 2 5 10 balloon to the mid PDA and several inflations were done to pre dilate this lesion. I then went in with a 2.5 mm x 22 mm resolute ayla stent and deployed that to 2.50 mm. Next we tried to advance a medicated stent to the mid distal segment of the RCA for the InStent restenosis in the area of the RCA that was uncovered with stenting which was severely stenosed at 80%. The 3.5 x 30 mm balloon stent would not track so we then went in with a 3 mm x 20 mm balloon and pre-dilated the mid distal RCA and mid RCA to nominal pressure I was then able to deliver the 3.5 mm x 30 mm to the mid distal RCA in an overlapping fashion with the previously placed mid RCA stent and deployed this to greater than 3.70 mm. I then used a noncompliant balloon and pretreated the InStent restenosis in the distal portion of the previously placed stent. I then post dilated the recently placed RCA stent and then I went in with a 3.5 mm x 15 mm agent drug c oated balloon into the distal InStent restenosis of remotely replaced stent and deployed it for 3.64 mm for 30 seconds. I then placed a 4 mm x 26 mm resolute ayla stent into the proximal RCA for InStent restenosis in an overlapping fashion with mid RCA stent and deployed that to 4.20 mm. At end of case there was no evidence of dissection or perforation with FRITZ 3 flow noted. Sheath was sewn into place to be removed at a later time. RECOMMENDATIONS: PATIENT WILL REMAIN ON DUAL ANTIPLATELET THERAPY SHEATH WILL BE REMOVED IN 3 HOURS 3 HOURS BEDREST IV HYDRATION PROBABLE DISCHARGE IN A.M. Assessment/Plan: Final diagnosis Unstable angina rule out ACS POA CAD s/p CABG s/p stenting x3 hockwave and PCI to SVG to OM 2 10/20. However, patient will need intervention of the RCA and PDA in the future POA HTN HLD Discharge Instructions: Patient to follow up with Dr Cornelio Lora as outpatient in 1-2 weeks. Patient to return to the hospital if condition changes. Patient agreed with plan and understood the information provided. Home Medications: Reported Medications Metoprolol Tartrate (Metoprolol Tartrate) 25 Mg Tablet, 25 MG PO BID, TAB 11/08/24 Aspirin (ASPIRIN 81MG CHEW TAB) 81 Mg Tab.chew, 81 MG PO DAILY, TAB.CHEW 10/21/24 Nitroglycerin (Nitroglycerin) 0.4 Mg Tab.subl, 0.4 MG SL TIDP 10/21/24 Semaglutide (Rybelsus) 7 Mg Tablet, 1 TAB PO DAILY 10/21/24 Omeprazole (Omeprazole) 20 Mg Capsule.dr, 1 CAP PO DAILY 10/21/24 Dapagliflozin Propanediol (Farxiga) 10 Mg Tablet, 1 TAB PO DAILY 10/21/24 Atorvastatin Calcium (Atorvastatin Calcium) 20 Mg Tablet, 1 TAB PO DAILY 10/21/24 Insulin Glargine,Hum.rec.anlog (Lantus Solostar) 100 Unit/Ml (3 Ml) Insuln.pen, 80 UNITS SQ HS 10/21/24 Isosorbide Mononitrate (Isosorbide Mononitrate ER) 30 Mg Tab.er.24h, 1 TAB PO DAILY 10/21/24 Tamsulosin HCl (Flomax) 0.4 Mg Cap.er.24h, 0.4 MG PO HS 10/21/24 Clopidogrel Bisulfate (Clopidogrel) 75 Mg Tablet, 1 TAB PO DAILY 10/21/24 Discontinued Reported Medications Tramadol Hcl (Tramadol HCl) 50 Mg Tablet, 1 TAB PO BID 10/21/24 Discontinued Scripts Losartan Potassium (Losartan Potassium) 100 Mg Tablet, 1 TAB PO DAILY for 30 Days, #30 TAB 0 Refills Prov:KASSIDY PAUL 10/21/24 Metoprolol Tartrate (Metoprolol Tartrate) 50 Mg Tablet, 1 TAB PO BID for 30 Days, #60 TAB 0 Refills Prov:KASSIDY PAUL 10/21/24 Time spent arranging discharge: 31-60 minutes JOSE BOWIE MD November 08, 2024 13:23
--- NOTE | 2024-11-08 14:00 | NUR ---
Discharge Notes Patient was discharged, all discharge documentation, and patient belongings given to spouse. Patient informed to follow up with primary and tank car reconditioner (11/15). no new prescriptions provided, current medications sent to [facility] in [place]. IV and telemetry pack were removed. Patient transported out of facility via wheelchair by Praveen Monge RN
--- NOTE | 2024-11-09 16:51 | NUR ---
Transitional Phone Call Spoke with Jonna Etienne, Spouse [phone], states patient "is doing good." States no new medications and is continuing to take home medications as instructed; no concerns or questions. States patient has a follow up appointment with PCP - Dr. Barrera on 11/14/2024; and is aware of the follow up appointment with baler - Dr. Lora. No further questions at this time.
== END 2024-11-08 14:05 | disposition home or self-care (01) | DRG 322 ==
LOC: EDH 10:57 → EDHIP 12:05 → 2AH 17:25
PROVIDERS: ADMIT Internal Medicine; ATTEND Internal Medicine
PROC: 027136Z Dilation of Coronary Artery, Two Arteries with Three Drug-eluting Intraluminal Devices, Percutaneous Approach (ICD-10-PCS; principal; 2024-11-07)
PROC: B210YZZ Fluoroscopy of Single Coronary Artery using Other Contrast (ICD-10-PCS; 2024-11-07)
DX: T82.855A Stenosis of coronary artery stent, initial encounter (principal); I25.110 Atherosclerotic heart disease of native coronary artery with unstable angina pectoris; E11.9 Type 2 diabetes mellitus without complications; I10 Essential (primary) hypertension; I49.5 Sick sinus syndrome; Y83.1 Surgical operation with implant of artificial internal device as the cause of abnormal reaction of the patient, or of later complication, without mention of misadventure at the time of the procedure; Z95.1 Presence of aortocoronary bypass graft; Z95.0 Presence of cardiac pacemaker; E78.00 Pure hypercholesterolemia, unspecified; Y92.89 Other specified places as the place of occurrence of the external cause
CPT/HCPCS: 36415; 71045; 80048; 80053; 82948; 83735; 83880; 84484; 85025; 85610; 85730; 93005; 99156; 99157; 99285; C1769; C1887; C1894; C9600; C9601; G0378; J0360; J0461; J0583; J1644; J2250; J2270; J3010; J3490; Q9967; C1725; C1753; C1874; Q9965